=== PATIENT | male | born 2000 | race Caucasian/White ===

== ENCOUNTER 2019-04-08 07:58 | Day surgery (SDC) | payer OTHER ==
[~2019-04-08] VITALS: Ht 172.7 cm; Wt 64.4 kg
[2019-04-08] VITALS (11 sets, daily range): BP systolic 111–131; BP diastolic 64–80; PULSE 68–88; RESP 12–23; Ht 172.7 cm; Wt 64.4 kg
[~2019-04-08 07:58] MED LIST: CEFAZOLIN 2 GM/50 ML (PMX) 50 ML IVPB SCH
--- NOTE | 2019-04-08 09:26 | PREAC ---
Date/Time of Note Date/Time of Note DATE: 04/08/19 TIME: 09:25 Anesthesia Eval and Record Evaluation Time Pre-Procedure Interview DATE: 04/08/19 TIME: 09:25 Age 18 Sex male NPO: 8 hrs Preoperative diagnosis gallstones Planned procedure lap choly Past Medical History Past Medical History: None Surgery & Anesthesia Issues No known issue Meds Anticoagulation: No Beta Bucky within 24 hr: No Reason Beta Bucky not given: Pt. not on B-Bucky Current Medications Cefazolin Sodium/ Dextrose 50 ml @ 100 mls/hr PRE-OP IVPB ; Start 04/08/19 at 06:00; Stop 04/08/19 at 15:00 Sodium Chloride 1,000 ml @ 75 mls/hr [id number] ONCE IV Last administered on 04/08/19at 09:04; Admin Dose 75 MLS/HR; Start 04/08/19 at 12:00; Stop 04/09/19 at 01:19 Meds reviewed: Yes Allergies Coded Allergies: No Known Allergy (Unverified , 04/07/19) Allergies Reviewed: Yes Labs/Studies Labs Reviewed: Reviewed by anesthesiologist test: N/A Pre-procedure Exam Last vitals Vital Signs Date Temp Pulse Resp B/P (MAP) Pulse Ox O2 O2 Flow FiO2 Time Delivery Rate 04/08/19 98.5 74 16 111/69 98 Room Air 08:48 (83) Airway: Adequate mouth opening, Adequate thyromental dist Mallampati: Mallampati III Teeth: Normal Lung: Normal Heart: Normal ASA Physical Status ASA physical status: 1 Emergency: None Pre-operative Attestations Prior to commencing anesthesia and surgery, the patient was re-evaluated, there was verification of: *The patient's identity *The results of appropriate recent lab work and preoperative vital signs *The above evaluation not changing prior to induction *Anesthetic plan, risk benefits, alternative and complications discussed with patient/family; questions answered; patient/family understands, accepts and wishes to proceed. RAEANN HARDIN DO Apr 08, 2019 09:26
[2019-04-08] MEDS ORDERED: HYDROmorphONE 1 MG/5 ML IV SYRINGE IV PRN ×3 (09:30)
[2019-04-08] MEDS ORDERED: ROCURONIUM 50 MG INJ ONE (09:32)
[2019-04-08] MEDS ORDERED: PROPOFOL 20 ML ONE (09:32)
[2019-04-08] MEDS ORDERED: MIDAZOLAM 1 MG/ML 2 ML INJ ONE (09:32)
[2019-04-08] MEDS ORDERED: LIDOCAINE 2% (SDV) 5 ML INJ ONE (09:32)
[2019-04-08] MEDS ORDERED: ROPIVACAINE 0.5 % 30 ML VIAL ONE (09:39)
[2019-04-08] MEDS ORDERED: CEFAZOLIN 1 GM INJ ONE (09:47)
[2019-04-08] MEDS ORDERED: ONDANSETRON 4 MG INJ ONE (09:48)
[2019-04-08] MEDS ORDERED: SUGAMMADEX SODIUM 200 MG/2 ML VIAL IV ONE (10:18)
[2019-04-08] MEDS ORDERED: DEXAMETHASONE 4 MG/ML 5 ML INJ ONE (10:33)
--- NOTE | 2019-04-08 10:39 | PAC ---
Date/Time of Note Date/Time of Note DATE: 04/08/19 TIME: 10:39 Post-Anesthesia Notes Post-Anesthesia Note Last documented vital signs Vital Signs Date Temp Pulse Resp B/P (MAP) Pulse Ox O2 O2 Flow FiO2 Time Delivery Rate 04/08/19 98.0 10:36 04/08/19 74 16 111/69 98 Room Air 08:48 (83) Activity: WNL Respiratory function: WNL Cardiovascular function: WNL Mental status: Baseline Pain reasonably controlled: Yes Hydration appropriate: Yes Nausea/Vomiting absent: Yes RAEANN HARDIN DO Apr 08, 2019 10:39
--- NOTE | 2019-04-08 10:47 | OPR ---
Date/Time of Note Date/Time of Note DATE: 04/08/19 TIME: 10:44 Operative Report Procedure Date: Apr 08, 2019 Preoperative Diagnosis symptomatic gallstones Postoperative Diagnosis same Operation/Procedure Performed laparoscopic cholecystectomy Surgeon see signature line Welder Production Line Arc none Anesthesia Type: general Estimated Blood Loss: 0 - 10 ml's Transfusion none Specimen gallbladder Grafts/Implants none Complications none Pt Condition Post Procedure: stable Indications This is a 18-year-old male with symptomatic gallstones. He request surgical excision of his gallbladder. Risks alternatives benefits and personal were discussed the patient. Patient expresses understanding and consents to the operation. Procedure Description Patient is taken to the OR and prepped and draped in usual sterile fashion. Surgical timeout was performed. IV antibiotics were given. Infraumbilical transverse incision was made with a 15 blade. Dissection with cautery was carried onto the fascia. The fascia was grasped with Tilghman's and divided with curved Ortiz scissors. 0 Vicryl stitches placed into the fascia. Ashley trocar is introduced. Pneumoperitoneum was established. Midepigastric 12 mm optical trochars placed under direct visualization. Right upper quadrant right upper flank 5 mm optical trochars were placed under direct visualization. Upon initial inspection there is some adhesions to the gallbladder which obtain a bluntly. The gallbladder is grasped the fundus and retracted and lateral cephalad direction. [place] graspers were used to dissect out the cystic duct and cystic artery. The critical view of safety was established. Due to its thickened cystic duct the cystic duct is divided with a 35 mm echelon vessel stapler. The staple line was reinforced with clips. Cystic artery was divided to close proximal to distal and the divisions performed lap scopic scissors. The gallbladder was taken of the gallbladder bed. Good hemostasis status. The gallbladder is retrieved Endo Catch bag. All ports were removed under direct visualization. Infraumbilical 0 Vicryl suture is tied down. Skin is closed and skin tracey. A tap block was provided by the anesthesiology to begin the case. Dry dressings were applied. Jayne SAUNDERS Apr 08, 2019 10:47
[2019-04-08] MEDS ORDERED: HYDROCODONE/APAP (5/325) TAB PO ONE (11:00)
[2019-04-08] MEDS ORDERED: SOD CHLORIDE 0.9% 1,000 ML IV ONE (12:00)
== END 2019-04-08 12:05 | disposition home or self-care (01) ==
LOC: SDS 07:58
PROVIDERS: ATTEND Surgery
DX: K80.10 Calculus of gallbladder with chronic cholecystitis without obstruction (principal)
CPT/HCPCS: 47562; 88304; J0690; J1100; J1170; J2250; J2405; J2795; J3010; Z7512; Z7610